=== PATIENT | male | born 1975 | race Caucasian/White ===

== ENCOUNTER 2023-11-28 14:18 | Emergency (ER) | payer BC, SELFPAY ==
[2023-11-28 14:19] VITALS: BP 150/100; PULSE 77; RESP 18; TEMP 35.9; O2SAT 99; BMI 25.9
[2023-11-28 14:31] VITALS: O2SAT 98
--- NOTE | 2023-11-28 15:07 | EKG12_ITS ---
Test Reason : SOB Blood Pressure : / mmHG Vent. Rate : 062 BPM Atrial Rate : 062 BPM P-R Int : 130 ms QRS Dur : 090 ms QT Int : 460 ms P-R-T Axes : 031 061 053 degrees QTc Int : 466 ms Sinus rhythm with Premature atrial complexes Otherwise normal ECG Confirmed by BE VILLALBA, CAROLYN ([id number]), editorial manager MYA PIKE ([id number]) on 12/01/2023 11:15:08 AM Referred By: Confirmed By:CAROLYN LR MD
--- NOTE | 2023-11-28 15:08 | EX.ED.DYSGE1 ---
HPI History of Present Illness Chief Complaint: Shortness of Breath Informant: patient Narrative Narrative: 48 yo patient who notes on Friday was walking through the plant and felt very hot. They noted increased need to breath harder. No change in chronic cough. No CP. Symptoms resolve with cooler/AC rooms. This occurred again today. Went to and sent to ED for concern for PE giving Tob use and hormonal use (hortensia VILLALBA @ [place]). Also notes recurrent rash on body with itching. Has had episodes for several years with no diagnosis. Reports using prednisone for it with some relief. PFSH PFSH Home Medications ?Medication ?Instructions ?Recorded ?Last Taken ?Type prednisone 20 mg tablet See Rx Instructions .Route 11/28/23 Unknown Rx .COMPLEX #24 tabs Allergy/AdvReac Type Severity Reaction Status Date / Time No Known Allergies Allergy Verified 11/28/23 14:19 Social History Smoking Status: Current some day smoker tobacco type: cigarettes ROS ROS ED ROS Narrative hot sensation while in hot environments Constitutional Constitutional ED: Denies chills, fever(s) or weight loss Eyes Eyes: Denies change in vision or diplopia ENT ENT ED: Denies ear pain, rhinorrhea or sore throat Cardiovascular Cardiovascular: Denies chest pain, orthopnea, palpitations or racing heartbeat Respiratory/Chest Respiratory/Chest: Reports cough, dyspnea, sputum and other Details: chronic cough - no change per patient ; Denies orthopnea Gastrointestinal Gastrointestinal: Denies abdominal pain, diarrhea, nausea or vomiting Genitourinary Genitourinary ED: Reports other Details: brown urine this am ; Denies dysuria, hematuria or urinary frequency Musculoskeletal Musculoskeletal: Denies arthralgias, back pain or myalgias Integumentary Reports rash; Denies abscess or Abrasions Neurologic Neurologic: Denies headache(s) or weakness Psychiatric Psychiatric: Denies anxiety, depression, suicidal ideation or suicidal thoughts Endocrine Endocrinology: Denies polydipsia, polyphagia or polyuria Allergic/Immunologic Allergic/Immunologic ED: Denies mouth swelling, tongue swelling or urticaria EXAM Physical Exam Const Vital Signs: 11/28/23 14:19 11/28/23 14:31 11/28/23 16:17 Temperature 96.6 F L Temperature Source Temporal Pulse Rate 77 78 Respiratory Rate 18 17 Respiratory Effort Normal Blood Pressure 150/100 H 104/53 L Blood Pressure Mean 116 70 Pulse Ox 99 98 Oxygen Delivery Method Room Air Room Air Room Air Positive well nourished and well developed General Appearance ED: well developed HEENT Reports normocephalic, head/scalp atraumatic and moist mucous membranes Eyes PERRL and EOMs intact bilaterally Neck no lymphadenopathy, supple and no JVD Resp normal respiratory effort and clear to auscultation bilaterally Cardio regular rate, regular rhythm and no murmurs GI normal to inspection, nondistended, normoactive bowel sounds and non-tender Palpation: soft Back/Spine no CVA tenderness and normal ROM Extremity normal to inspection General Extremety ED: Negative for edema General Extremity: Negative for edema Neuro oriented x3 and CN's II-XII intact bilaterally Sensorium / Orientation: alert Motor Exam: strength 5/5 throughout Psych mental status grossly normal Mood & Affect: Negative for depressed or tearful Skin no wounds Skin Narrative: rash - discrete red flat excoriated 3-4 mm round lesions arms/legs/trunks. no signs of cellulitis MDM MDM MDM Narrative Medical decision making narrative: Differential diagnoses include but not limited to pulmonary embolism ACS pneumothorax pneumonia chronic back pain acute bronchitis bronchospasm dermatitis folliculitis disseminated zoster Patel-Brandon's bug bites My independent interpretation the chest x-ray is no acute process. EKG is a sinus rhythm. CBC shows a normal white count 8.4 hemoglobin 15.5 platelet count of two 1773.6 neutrophils BMP within normal sodium and potassium. Calcium noted to be 8 glucose is 96 D-dimer is within normal limits troponin is within normal limits urinalysis 5-10 white cells 1+ bacteria. Patient does not have any urinary frequency or dysuria. This could be sent for culture. Patient's remained in a sinus rhythm. I do not see a clear etiology for their symptoms. I recommend that the patient establish primary care either locally or with her doctor in [place]. He also may benefit from seeing dermatology again as they have not followed up since they had a biopsy. Prednisone has helped with the rash in the past and I can certainly write for that. History & Record Review Discussion w/independent historian: Patient Lab Data Attestation: I reviewed the patient's lab results. Labs: Laboratory Results - last 24 hr 11/28/23 11/28/23 14:47 15:24 WBC 8.4 RBC 5.47 Hgb 15.5 Hct 45.0 MCV 82.3 MCH 28.3 MCHC 34.4 RDW Std Deviation 37.4 RDW Coeff of Pop 12.5 Plt Count 217 MPV 9.7 Immature Gran % (Auto) 0.500 Neut % (Auto) 73.6 H Lymph % (Auto) 18.1 L [place] % (Auto) 5.5 Eos % (Auto) 1.9 Baso % (Auto) 0.4 Absolute Neuts (auto) 6.2 Absolute Lymphs (auto) 1.52 Nucleated RBC % 0 D-Dimer Quant (PE/DVT) 0.29 Sodium 135 L Potassium 3.6 Chloride 102 Carbon Dioxide 24.0 Anion Gap 9 BUN 11 Creatinine 1.03 Estim Creat Clear Calc 97.31 Est GFR (MDRD) Af Amer 99 Est GFR (MDRD) Non-Af 82 BUN/Creatinine Ratio 10.7 Glucose 96 Calcium 8.0 L Total Bilirubin 1.00 Direct Bilirubin 0.17 AST 18 ALT 19 Alkaline Phosphatase 46 Troponin I High Sens 3 Total Protein 7.6 Albumin 3.6 Globulin 4.0 Urine Color Yellow Urine Clarity Sl. Cloudy Urine pH 6.5 Ur Specific [place] 1.010 Urine Protein Negative Urine Glucose (UA) Normal Urine Ketones Negative Urine Occult Blood Negative Urine Nitrite Negative Urine Bilirubin Negative Urine Urobilinogen Normal Ur Leukocyte Esterase 500 H Urine RBC 0-5 SEEN Urine WBC 5-10 SEEN Ur Squamous Epith Cells 0-5 SEEN Urine Bacteria 1+ Urine Mucus 0 SEEN Radiography Diagnostic Testing: Clinical Impression(s) from Imaging Studies Chest X-Ray 11/28/23 15:10 IMPRESSION: No interval change and no acute or active cardiopulmonary disease. Electronically Signed: Damien Giang MD at 15:16 EDT , EKG Initial EKG: Attestation: I personally reviewed and interpreted this EKG as follows: Comments: Sinus rhythm with a ventricular rate of 62 bpm. PAC noted. Discharge Plan Triage Chief Complaint: Shortness of Breath ED Provider: Elgin Shannon Dx/Rx/DC Orders Clinical Impression: Acute dyspnea, Rash Instructions: ED Dyspnea Prescriptions: New prednisone 20 mg tablet See Rx Instructions .ROUTE .COMPLEX Qty: 24 0RF Rx Instructions: 3 tabs p.o. daily x 4 days then 2 tabs p.o. daily x 4 days then 1 tab p.o. daily x 4 days Primary Care Provider: Mt Kim Referrals: Mt Kim MD [Primary Care Provider] - As soon as possible Timo Lopez MD [Med Staff - School Occupational Therapist] - (for dermatology locally) Print Language: Citizen Of [place] Disposition Disposition: Home, Self Care
--- NOTE | 2023-11-28 15:10 | RAD_ITS ---
STUDY: X-RAY CHEST REASON FOR EXAM: Male, 48 years old. Dyspnea. TECHNIQUE: Single frontal view of the chest. COMPARISON: September 28, 2014 FINDINGS: Low volume inspiration. There is no demonstrated pleural abnormality. Normal size heart. Normal mediastinum and ryan. Normal visualized pulmonary arteries. Aortic tortuosity. No abnormality of the visualized soft tissue structures of the upper abdomen. RAD/Chest 1 View (Portable) IMPRESSION: No interval change and no acute or active cardiopulmonary disease. Electronically Signed: Damien Giang MD at 15:16 EDT ,
--- NOTE | 2023-11-28 15:10 | NURSING ---
NO OLD EKGS
[2023-11-28 15:22] LABS: Absolute Lymphocyte Count 1.52 X10^3/uL (0.83-4.51); Absolute Neutrophil Count 6.2 X10^3/uL (2.0-7.7); Basophil# 0.03 X10^3/uL; Basophil% 0.4 % (0-1); Eosinophil# 0.16 X10^3/uL; Eosinophils% 1.9 % (0-5); Hemoglobin 15.5 g/dL (13.0-16.5); Lymphocyte # 1.52 X10^3/ul (0.83-4.51); Lymphocyte % 18.1 % (19-41); Mean Corp Hgb Conc 34.4 g/dL (32-36); Mean Corpuscular Hgb 28.3 pg (27.0-32.0); Mean Corpuscular Volume 82.3 fL (80-94); Mean Platelet Vol. 9.7 fl (6.2-12.0); Monocyte# 0.46 X10^3/uL; Monocyte% 5.5 % (0-10); NRBC Flagged by Analyzer 0 % (0-5); Neutrophil # 6.18 X10^3/uL (2.7-7.7); Neutrophil % 73.6 % (47-70); Platelet Count 217 K/mm3 (150-450); RBC Distribution Width CV 12.5 % (11.6-14.6); RBC Distribution Width SD 37.4 fl (35.1-43.9); Red Blood Count 5.47 M/mm3 (4.6-6.2); White Blood Count 8.4 K/mm3 (4.4-11.0)
[2023-11-28 15:30] LABS: Mucous, Urine 0 SEEN /hpf (<or=2+)
[2023-11-28 15:31] LABS: Color, Urine Yellow (Yellow); Glucose, Dipstick Normal (Normal); Ketone-Dipstick Negative (Negative); Leukocyte Esterase-Dipstick 500 /ul (Negative); Nitrite-Dipstick Negative (Negative); Occult Blood-Urine Negative /ul (Negative); Protein-Dipstick Negative (Negative); Urine Bilirubin Dipstick Negative (Negative); Urine Clarity Sl. Cloudy (Clear); Urine Urobilinogen Normal (Normal); Urine pH 6.5 (5.0 - 8.0)
[2023-11-28 15:41] LABS: D-Dimer Quantitative (DVT/PE) 0.29 FEU/ug/m (0.27-0.49)
[2023-11-28 15:46] LABS: Bacteria 1+ /hpf (None Seen); Red Blood Cells-Urine 0-5 SEEN /hpf (0-5); Squamous Epithelial Cells - UA 0-5 SEEN /hpf (0-5)
[2023-11-28 15:47] LABS: White Blood Cells 5-10 SEEN /hpf (0-5)
[2023-11-28 15:50] LABS: AST(SGOT) 18 U/L (15-37); Alanine Aminotransfer ALT/SGPT 19 U/L (16-61); Albumin, Serum 3.6 g/dL (3.2-5.0); Alkaline Phosphatase 46 U/L (45-117); Anion Gap 9 (5-15); BUN 11 mg/dL (7-18); BUN/Creat Ratio 10.7 RATIO (10-20); Bilirubin, Direct 0.17 mg/dL (0.00-0.30); Chloride 102 mmol/L (98-107); Creatinine, Serum 1.03 mg/dL (0.70-1.30); EST Glomerular Filtration Rate 82 mL/min (>60); Est Glom Filt Rate - Afr Amer 99 mL/min (>60); Estimated Creatinine Clearance 97.31 ml/min; Glucose 96 mg/dL (74-106); Potassium 3.6 mmol/L (3.5-5.1); Protein, Total 7.6 g/dL (6.4-8.2); Sodium Level 135 mmol/L (136-145); Troponin-I HS 3 pg/mL (3.0-78.0)
[2023-11-28] MEDS: 0.9% Normal Saline (1000mL) 1,000 ML 1000 ML IV (15:57)
[2023-11-28 16:17] VITALS: BP 104/53; PULSE 78; RESP 17; O2SAT 98
[2023-11-28 16:25] VITALS: BP 104/53; PULSE 67; RESP 18; TEMP 36.6; O2SAT 100
== END 2023-11-28 16:31 | disposition home or self-care (01) ==
PROVIDERS: Emergency Provider Emergency Medicine; PCP Family Medicine; Visit Provider Emergency Medicine
DX: R06.02 Shortness of breath (principal); R21 Rash and other nonspecific skin eruption; F17.210 Nicotine dependence, cigarettes, uncomplicated
CPT/HCPCS: 71045; 80048; 80076; 81001; 84484; 85025; 85379; 87077; 87086; 87088; 87186; 93005; 96360; 99283; J7030; A4216

== ENCOUNTER 2024-07-19 19:55 | Inpatient (IN) | payer BC, SELFPAY ==
[2024-07-19 19:56] VITALS: BP 119/68; PULSE 75; RESP 16; TEMP 36.1; O2SAT 99; BMI 27.2
[2024-07-19 20:56] VITALS: BP 142/83; PULSE 81; RESP 17; O2SAT 98
[2024-07-19 21:45] VITALS: PULSE 87; RESP 17; O2SAT 98
--- NOTE | 2024-07-19 21:47 | EDS_ITS ---
HPI History of Present Illness Chief Complaint: ETOH Intox Narrative Narrative: 49-year-old transgender male to female presents with her friend for alcohol detox. She states she has never been through detox previously but went through AA. She had been sober for 5 years, but over the last 5 months has had daily drinking of at least 6-10 tall boy beers a day. Her last drink was at 3:00 this morning, approximately 18 hours ago. She feels slightly nauseated but denies any shakiness. No chest pain or shortness of breath. She states she is here for alcohol detox. She does smoke marijuana on occasion but denies other substance abuse. PFSH [facility] Home Medications ?Medication ?Instructions ?Recorded ?Last Taken ?Type albuterol sulfate 90 mcg/actuation 2 puff inhalation Q 4H PRN PRN 07/19/24 Unknown History aerosol inhaler wheezing bupropion HCl 150 mg 24 hr tablet, 150 mg PO DAILY 03/05 Unknown History extended release buspirone 5 mg tablet 5 mg PO TID 07/19/24 Unknown History estradiol valerate 20 mg/mL 10 mg IM SA 07/19/24 Unkno wn History intramuscular oil fluticasone propionate 50 2 spray intranasal DAILY 03/05 Unknown History mcg/actuation nasal spray,suspension meclizine 12.5 mg tablet 12.5 mg PO Q6H PRN PRN dizzi ness 07/19/24 Unknown History progesterone micronized 100 mg 100 mg PO DAILY 5 Unknown History capsule propranolol 20 mg tablet 20 mg PO BID 07/19/24 Unknow n History Allergy/AdvReac Type Severity Reaction Status Date / Time No Known Allergies Allergy Verified 07/19/24 19:56 Social History Smoking Status: Current some day smoker tobacco type: cigarettes ROS ROS ED ROS Narrative Review of systems positive for slight nausea and minimal headache. Denies shakiness or chest pain, no shortness of breath or palpitations. No tremors. No abdominal pain. EXAM Physical Exam Narrative Exam Narrative: Afebrile. Vital signs noted. Nontoxic-appearing. Cardiovascular examination reveals a regular rate and rhythm without tachycardia, lungs clear to auscultation bilaterally. Abdomen soft and nontender without guarding or rebound. Positive bowel sounds. Neurological examination is nonfocal and nonlateralizing. Moves all extremities. Very slight slurring of speech as if intoxicated. Const Vital Signs: 07/19/24 19:56 07/19/24 20:56 07/19/24 21:45 Temperature 97 F L Temperature Source Temporal Pulse Rate 75 81 87 Respiratory Rate 16 17 17 Blood Pressure 119/68 142/83 H Blood Pressure Mean 85 102 Pulse Ox 99 98 98 Oxygen Delivery Method Room Air Room Air Room Air 07/19/24 22:00 07/19/24 22:09 07/19/24 23:00 Temperature 98 F Temperature Source Pulse Rate 71 70 69 Respiratory Rate 18 16 18 Blood Pressure 127/80 H 127/80 H 119/74 Blood Pressure Mean 95 95 89 Pulse Ox 98 97 98 Oxygen Delivery Method Room Air Room Air 07/20/24 00:00 Temperature Temperature Source Pulse Rate 60 Respiratory Rate Blood Pressure 142/96 H Blood Pressure Mean 111 Pulse Ox 94 Oxygen Delivery Method Room Air MDM MDM MDM Narrative Medical decision making narrative: Patient presents for detox from alcohol. I do not feel the differential diagnosis is applicable in this case. Medical screening labs were obtained per protocol. As the patient is biologically male, test was not obtained. Instead, CBC, CMP, and lipase were obtained. This as well as alcohol level and urine for drugs of abuse. I do not feel that any imaging is indicated and there are no active signs of withdrawal currently as she is normotensive and not tachycardic. Patient will be discussed with the hospitalist for admission for detox. Patient is in stable condition. Patient signed out to Dr. Clayton to discuss with the hospitalist admission for detox. History & Record Review Discussion w/independent historian: Patient Lab Data Attestation: I reviewed the patient's lab results. Labs: Laboratory Results - last 24 hr 07/19/24 07/19/24 07/19/24 21:47 21:54 21:59 WBC 8.1 RBC 4.69 Hgb 13.8 Hct 38.7 L MCV 82.5 MCH 29.4 MCHC 35.7 RDW Std Deviation 38.8 RDW Coeff of Pop 13.0 Plt Count 219 MPV 9.8 Immature Gran % (Auto) 0.500 Neut % (Auto) 60.1 Lymph % (Auto) 25.0 [place] % (Auto) 10.1 H Eos % (Auto) 3.6 Baso % (Auto) 0.7 Absolute Neuts (auto) 4.9 Absolute Lymphs (auto) 2.02 Nucleated RBC % 0 Sodium 138 Potassium 3.8 Chloride 104 Carbon Dioxide 24.2 Anion Gap 10 BUN 9 Creatinine 0.86 Estim Creat Clear Calc 122.13 Est GFR (MDRD) Non-Af 107 BUN/Creatinine Ratio 10.7 Glucose 88 Calcium 8.7 Total Bilirubin 0.31 AST 19 ALT 13 Alkaline Phosphatase 40 Total Protein 6.2 Albumin 3.9 Globulin 2.3 Albumin/Globulin Ratio 1.7 Urine Opiates Screen NEGATIVE U Buprenorphine Qual NEGATIVE Ur Oxycodone Screen NEGATIVE Urine Methadone Screen NEGATIVE Urine Fentanyl Screen NEGATIVE Ur Barbiturates Screen NEGATIVE Ur Phencyclidine Scrn NEGATIVE Ur Amphetamines Screen NEGATIVE U Benzodiazepines Scrn NEGATIVE Urine Cocaine Screen NEGATIVE U Cannabinoids Screen PREUMTIVE POSITIVE Ethyl Alcohol < 10.1 Discharge Plan Triage Chief Complaint: ETOH Intox ED Provider: Loyd rPyor Dx/Rx/DC Orders Prescriptions: No Action buspirone 5 mg tablet 5 mg PO TID meclizine 12.5 mg tablet 12.5 mg PO Q6H PRN PRN (Reason: dizziness) albuterol sulfate 90 mcg/actuation HFA aerosol inhaler 2 puff INHALATION Q4H PRN PRN (Reason: wheezing) propranolol 20 mg tablet 20 mg PO BID fluticasone propionate 50 mcg/actuation spray,suspension 2 spray INTRANASAL DAILY progesterone micronized 100 mg capsule 100 mg PO DAILY estradiol valerate 20 mg/mL oil 10 mg IM SA bupropion HCl 150 mg tablet extended release 24 hr 150 mg PO DAILY Primary Care Provider: Mt Kim Referrals: Mt Kim MD [Primary Care Provider] - Print Language: Czech
[2024-07-19 22:00] VITALS: BP 127/80; PULSE 71; RESP 18; O2SAT 98
[2024-07-19 22:08] LABS: Absolute Lymphocyte Count 2.02 X10^3/uL (0.83-4.51); Absolute Neutrophil Count 4.9 X10^3/uL (2.0-7.7); Basophil# 0.06 X10^3/uL; Basophil% 0.7 % (0-1); Eosinophil# 0.29 X10^3/uL; Eosinophils% 3.6 % (0-5); Hematocrit 38.7 % (40-54); Hemoglobin 13.8 g/dL (13.0-16.5); Lymphocyte # 2.02 X10^3/ul (0.83-4.51); Mean Corp Hgb Conc 35.7 g/dL (32-36); Mean Corpuscular Hgb 29.4 pg (27.0-32.0); Mean Corpuscular Volume 82.5 fL (80-94); Mean Platelet Vol. 9.8 fl (6.2-12.0); Monocyte# 0.82 X10^3/uL; Monocyte% 10.1 % (0-10); NRBC Flagged by Analyzer 0 % (0-5); Neutrophil # 4.86 X10^3/uL (2.7-7.7); Neutrophil % 60.1 % (47-70); Platelet Count 219 K/mm3 (150-450); RBC Distribution Width SD 38.8 fl (35.1-43.9); Red Blood Count 4.69 M/mm3 (4.6-6.2); White Blood Count 8.1 K/mm3 (4.4-11.0)
[2024-07-19 22:09] VITALS: BP 127/80; PULSE 70; RESP 16; TEMP 36.6; O2SAT 97
[2024-07-19 22:43] LABS: Alcohol, Blood (Medical)-Serum < 10.1 mg/dL (<=10.0)
[2024-07-19 22:45] LABS: Amphetamine Urine NEGATIVE (<1000 ng/mL); Barbiturate Urine NEGATIVE (< 200 ng/mL); Benzodiazepine Urine NEGATIVE (< 200 ng/mL); Buprenorphine Urine NEGATIVE (< 200 ng/mL); Cocaine Urine NEGATIVE (< 300 ng/mL); Fentanyl, Urine NEGATIVE; Methadone Urine NEGATIVE (< 300 ng/mL); Opiates Urine NEGATIVE (< 300 ng/mL); Oxycodone, Urine NEGATIVE (< 100 ng/mL); PCP Urine NEGATIVE (< 25 ng/mL); THC Urine PREUMTIVE POSITIVE (< 50 ng/mL)
[2024-07-19 22:57] LABS: ALB/GLOB Ratio 1.7 RATIO (0.9-2.4); AST(SGOT) 19 U/L (<=37); Alanine Aminotransfer ALT/SGPT 13 U/L (<=46); Albumin, Serum 3.9 g/dL (3.5-5.0); Alkaline Phosphatase 40 U/L (40-129); Anion Gap 10 (5-15); BUN 9 mg/dL (4-19); BUN/Creat Ratio 10.7 RATIO (10-20); Calcium,Total 8.7 mg/dL (7.6-11.0); Carbon Dioxide 24.2 mmol/L (21.0-32.0); Chloride 104 mmol/L (98-108); Creatinine, Serum 0.86 mg/dL (0.70-1.20); EST Glomerular Filtration Rate 107 (>60); Estimated Creatinine Clearance 122.13 ml/min (50-250); Globulin 2.3 g/dL (2.2-4.2); Glucose 88 mg/dL (70-99); Potassium 3.8 mmol/L (3.3-5.1); Protein, Total 6.2 g/dL (5.9-8.4); Sodium Level 138 mmol/L (133-145); Total Bilirubin 0.31 mg/dL (0.00-1.30)
[2024-07-19 23:00] VITALS: BP 119/74; PULSE 69; RESP 18; O2SAT 98
[2024-07-20] VITALS (8 sets, daily range): BP systolic 95–142; BP diastolic 41–99; PULSE 60–98; RESP 16–18; TEMP 36.3–36.6; O2SAT 94–99; BMI 27.0; BMI 27.8
--- NOTE | 2024-07-20 01:10 | PCM.HP.STD ---
[facility] - General General Date of Admission: 07/20/24 Date of Service: 07/20/24 Chief Complaint: Desire for Alcohol Detoxification. HPI Narrative DESTINI SANDOVAL, is a 49-year-old transgender male to female with a past medical history of chronic alcohol abuse, tobacco abuse, cannabis abuse, depression with anxiety; on bupropion, buspirone 3 times daily and propranolol twice daily, overweight; BMI of 27.2 this admission, history of asthma; on as needed albuterol, history of allergic rhinitis; on fluticasone propionate nasal spray, history of vertigo; on as needed meclizine and history of HRT; on estradiol IM and micronized progesterone daily who presents to [facility] ER expressing desire for alcohol detoxification. Ms. Sandoval reports alleged sobriety for the past 5 years but over the last 5 months has begun drinking heavily with routine ingestion of 6-10 tall boy beers daily. The last drink was approximately 3 AM on July 19, 2024. There is admission of slight nausea and mild headache but denies tremors or shakiness. There was also no report of chest pain, fever, chills or shortness of breath. In the ER patient was noted to have a YOJANA of less than 10.1 mg/dL with a UDS positive for Cannabis with impending alcohol withdrawal in the setting of chronic alcohol abuse and the patient was then admitted to the general medical floor for treatment under the alcohol detoxification protocol for a stay that is expected to extend beyond 2 midnights. [facility] Medical History (Updated 07/20/24 @ 05:[address] Gray Lopez, DO) Gender dysphoria Depression EtOH dependence Home Medications ?Medication ?Instructions ?Recorded ?Last Taken ?Type albuterol sulfate 90 mcg/actuation 2 puff inhalation Q4H PRN PRN 07/19/24 Unknown History aerosol inhaler wheezing bupropion HCl 150 mg 24 hr tablet, 150 mg PO DAILY 07/19/24 Unknown History extended release buspirone 5 mg tablet 5 mg PO TID 07/19/24 Unknown History estradiol valerate 20 mg/mL 10 mg IM SA 07/19/24 Unknown History intramuscular oil fluticasone propionate 50 2 spray intranasal DAILY 07/19/24 Unknown History mcg/actuation nasal spray,suspension meclizine 12.5 mg tablet 12.5 mg PO Q6H PRN PRN dizziness 07/19/24 Unknown History progesterone micronized 100 mg 100 mg PO DAILY 07/19/24 Unknown History capsule propranolol 20 mg tablet 20 mg PO BID 07/19/24 Unknown History Allergy/AdvReac Type Severity Reaction Status Date / Time No Known Allergies Allergy Verified 07/19/24 19:56 Social History Smoking Status: Current some day smoker tobacco type: cigarettes ROS ROS Narrative Review of Systems: Constitutional: Patient denies fever or chills. Eyes: Patient denies changes in vision, hallucinations or discharge from eyes. ENT: Patient denies runny nose, sore throat or ear pain. Resp: Patient denies shortness of breath or cough. CV: Patient denies chest pain, palpitations, heart racing or lower extremity edema. GI: Patient admits to nausea but denies vomiting, abdominal pain, diarrhea or constipation. : Patient denies dysuria or hematuria. MSK: Patient denies arthralgias or myalgias. Skin: Patient denies rash, abscess, wounds or jaundice. Psych: Patient admits to depression with anxiety but denies SI or HI. Neuro: Patient admits to minimal headache but denies paresthesias or focal neurologic deficits. Allergy: Patient denies lip swelling, tongue swelling or urticaria. Hematology: Patient denies easy bleeding or easy bruisability. Endocrinology: Patient denies polyuria, polydipsia or polyphagia. 14 point review of systems otherwise negative except for positives noted above in HPI. Vital Signs Vital Signs Vital Signs: 07/19/24 19:56 07/19/24 20:56 07/19/24 21:45 Temperature 97 F L Temperature Source Temporal Pulse Rate 75 81 87 Respiratory Rate 16 17 17 Blood Pressure 119/68 142/83 H Blood Pressure Mean 85 102 Pulse Ox 99 98 98 Oxygen Delivery Method Room Air Room Air Room Air 07/19/24 22:00 07/19/24 22:09 07/19/24 23:00 Temperature 98 F Temperature Source Pulse Rate 71 70 69 Respiratory Rate 18 16 18 Blood Pressure 127/80 H 127/80 H 119/74 Blood Pressure Mean 95 95 89 Pulse Ox 98 97 98 Oxygen Delivery Method Room Air Room Air 07/20/24 00:00 Temperature Temperature Source Pulse Rate 60 Respiratory Rate Blood Pressure 142/96 H Blood Pressure Mean 111 Pulse Ox 94 Oxygen Delivery Method Room Air Weight Weight: 212 lb Body Mass Index (BMI) 27.2 Physical Exam Const alert, oriented x3, no apparent distress and average body habitus General Appearance: cooperative HEENT normocephalic, head/scalp atraumatic, hearing grossly normal bilaterally and moist oral mucous membranes Eyes PERRL, EOMs intact bilaterally and conjunctivae normal Neck no lymphadenopathy, supple and no JVD Resp normal respiratory effort, no retractions, no use of accessory muscles and clear to auscultation bilaterally Cardio regular rate and regular rhythm GI normal to inspection, nondistended, normoactive bowel sounds, soft to palpation, non-tender and non-distended Extremity normal to inspection, full ROM and no clubbing, cyanosis or edema Skin Skin Narrative: Patient has no evidence of rash, abscess, wounds or jaundice. Neuro oriented x3, CN's II-XII intact bilaterally, moves all extremities and no focal motor deficits Sensorium / Orientation: awake, alert, oriented to person, oriented to place and oriented to time Speech: speech normal Psych Mood & Affect: depressed and anxious Results Medical Records Data Attestation: I reviewed the patient's medical records Lab / Micro Data Attestation: I reviewed the patient's lab results. 07/20/24 05:22 07/19/24 21:47 Labs: Laboratory Results - last 24 hr 07/19/24 21:47: Sodium 138, Potassium 3.8, Chloride 104, Carbon Dioxide 24.2, Anion Gap 10, BUN 9, Creatinine 0.86, Estim Creat Clear Calc 122.13, Est GFR (MDRD) Non-Af 107, BUN/Creatinine Ratio 10.7, Glucose 88, Calcium 8.7, Total Bilirubin 0.31, AST 19, ALT 13, Alkaline Phosphatase 40, Total Protein 6.2, Albumin 3.9, Globulin 2.3, Albumin/Globulin Ratio 1.7 07/19/24 21:54: WBC 8.1, RBC 4.69, Hgb 13.8, Hct 38.7 L, MCV 82.5, MCH 29.4, MCHC 35.7, RDW Std Deviation 38.8, RDW Coeff of Pop 13.0, Plt Count 219, MPV 9.8, Immature Gran % (Auto) 0.500, Neut % (Auto) 60.1, Lymph % (Auto) 25.0, [place] % (Auto) 10.1 H, Eos % (Auto) 3.6, Baso % (Auto) 0.7, Absolute Neuts (auto) 4.9, Absolute Lymphs (auto) 2.02, Nucleated RBC % 0, Ethyl Alcohol < 10.1 07/19/24 21:59: Urine Opiates Screen NEGATIVE, U Buprenorphine Qual NEGATIVE, Ur Oxycodone Screen NEGATIVE, Urine Methadone Screen NEGATIVE, Urine Fentanyl Screen NEGATIVE, Ur Barbiturates Screen NEGATIVE, Ur Phencyclidine Scrn NEGATIVE, Ur Amphetamines Screen NEGATIVE, U Benzodiazepines Scrn NEGATIVE, Urine Cocaine Screen NEGATIVE, U Cannabinoids Screen PREUMTIVE POSITIVE Assessment & Plan Assessment/Plan (1) Desire for detoxification: (2) Chronic alcohol abuse: (3) Cannabis abuse: (4) Tobacco abuse: (5) Depression with anxiety: (6) Transgender man on hormone therapy: (7) Gender dysphoria: (8) Overweight (BMI 25.0-29.9): PLAN: Plan 1. Impending Alcohol Withdrawal in the setting of Chronic Alcohol Abuse with patient expressing desire for Alcohol Detoxification - Admit to general medical floor for treatment under the alcohol detoxification protocol primarily consisting of phenobarbital taper. Alcohol Cessation will be strongly encouraged. Finally, we will consult case management see this patient on rounds in the a.m. further recommendations regarding referral to 180 program with help appreciated in advance. 2. Cannabis Abuse; with UDS positive for this agent this admission complicating #1 - Cannabis Cessation will be strongly encouraged. 3. Tobacco Abuse compounding #1 & #2 - Tobacco Cessation will be strongly encouraged with nicotine patch offered to control cravings. 4. Depression with anxiety; on bupropion, buspirone 3 times daily and propranolol twice daily - Maintain home regimen as previous. 5. History of gender dysphoria on HRT; on estradiol IM and micronized progesterone adding to the medical complexity of #1-#4 - Noted. 6. Overweight; BMI of 27.2 this admission - Weight also be recommended. Check TSH. 7. History of asthma; on as needed albuterol - Stable with no evidence of acute flare at this time. Continue as needed albuterol. 8. History of allergic rhinitis; on fluticasone propionate nasal spray - Resume fluticasone as before. 9. History of vertigo; on as needed meclizine - Continue as needed meclizine. 10. DVT prophylaxis - Lovenox 40 mg sq daily. Total time: Approximately (but not less than) 75 minutes. Charges/Coding Visit Charges Inpatient E&M: 05282 Init Hosp L3
[2024-07-20] MEDS: Phenobarbital 32.4 MG Tablet PO ×6 (03:29→22:43)
[2024-07-20] MEDS: 0.9% Normal Saline (1000mL) 1,000 ML 100 ML IV (03:43)
[2024-07-20] MEDS: 0.9% Saline Lock 10 ML Syringe IV (03:44)
[2024-07-20 05:50] LABS: Absolute Lymphocyte Count 2.03 X10^3/uL (0.83-4.51); Absolute Neutrophil Count 4.1 X10^3/uL (2.0-7.7); Basophil# 0.04 X10^3/uL; Basophil% 0.6 % (0-1); Eosinophils% 4.1 % (0-5); Hematocrit 36.7 % (40-54); Lymphocyte # 2.03 X10^3/ul (0.83-4.51); Lymphocyte % 28.1 % (19-41); Mean Corp Hgb Conc 35.4 g/dL (32-36); Mean Corpuscular Volume 81.9 fL (80-94); Mean Platelet Vol. 9.9 fl (6.2-12.0); Monocyte# 0.72 X10^3/uL; NRBC Flagged by Analyzer 0 % (0-5); Neutrophil % 56.6 % (47-70); Platelet Count 206 K/mm3 (150-450); RBC Distribution Width SD 38.8 fl (35.1-43.9); Red Blood Count 4.48 M/mm3 (4.6-6.2); White Blood Count 7.2 K/mm3 (4.4-11.0)
[2024-07-20 06:24] LABS: ALB/GLOB Ratio 1.7 RATIO (0.9-2.4); AST(SGOT) 18 U/L (<=37); Alanine Aminotransfer ALT/SGPT 12 U/L (<=46); Albumin, Serum 3.7 g/dL (3.5-5.0); Alkaline Phosphatase 34 U/L (40-129); Anion Gap 10 (5-15); BUN 11 mg/dL (4-19); BUN/Creat Ratio 13.2 RATIO (10-20); Calcium,Total 8.4 mg/dL (7.6-11.0); Carbon Dioxide 22.6 mmol/L (21.0-32.0); Chloride 104 mmol/L (98-108); Creatinine, Serum 0.84 mg/dL (0.70-1.20); EST Glomerular Filtration Rate 108 (>60); Estimated Creatinine Clearance 125.04 ml/min (50-250); Globulin 2.2 g/dL (2.2-4.2); Glucose 87 mg/dL (70-99); Magnesium 2.1 mg/dL (1.5-2.2); Phosphorus 2.8 mg/dL (2.7-4.5); Potassium 3.7 mmol/L (3.3-5.1); Protein, Total 5.9 g/dL (5.9-8.4); Sodium Level 137 mmol/L (133-145); Total Bilirubin 0.36 mg/dL (0.00-1.30)
[2024-07-20] MEDS: busPIRone 5 MG Tablet PO ×3 (06:46→22:43)
[2024-07-20] MEDS: Thiamine Hydrochloride 100 MG Tablet PO (08:49)
[2024-07-20] MEDS: Folic Acid 1 MG Tablet PO (08:49)
[2024-07-20] MEDS: Propranolol 10 MG Tablet 20 MG PO ×2 (11:30→22:43)
[2024-07-20] MEDS: Enoxaparin 40 MG/0.4 ML Syringe SC (11:31)
[2024-07-20] MEDS: buPROPion (XL) 150 MG TABLET.XL PO (11:31)
--- NOTE | 2024-07-20 12:53 | PCM.HOSP.N ---
Hospitalist Note Patient admitted early in the morning 07/20/2024 for alcohol detox, tolerating phenobarb taper, has a slight headache but is better than it was, feels little bit unwell overall and was little bit nauseated earlier, discussed the as needed medications available and patient verbalized their understanding. Continue current management
[2024-07-21] MEDS: MELATONIN 3 MG TABLET PO (00:15)
[2024-07-21] MEDS: Acetaminophen 325 MG Tablet 650 MG PO ×2 (00:16→14:32)
[2024-07-21] MEDS: traZODone 100 MG Tablet PO (00:16)
[2024-07-21] MEDS: hydrOXYzine PAM 25 MG Capsule 50 MG PO (00:16)
[2024-07-21] MEDS: Phenobarbital 32.4 MG Tablet PO ×6 (03:43→22:13)
[2024-07-21 04:00] VITALS: BP 96/52; PULSE 58; RESP 16; TEMP 36.7; O2SAT 96
[2024-07-21] MEDS: busPIRone 5 MG Tablet PO ×3 (06:46→22:13)
[2024-07-21 08:18] VITALS: BP 82/45; PULSE 57; RESP 13; TEMP 36.4; O2SAT 97
[2024-07-21] MEDS: Thiamine Hydrochloride 100 MG Tablet PO (08:21)
[2024-07-21] MEDS: Folic Acid 1 MG Tablet PO (08:21)
[2024-07-21] MEDS: Enoxaparin 40 MG/0.4 ML Syringe SC (08:21)
[2024-07-21] MEDS: PROGESTERONE, MICRONIZED 100 MG CAPSULE PO (08:22)
--- NOTE | 2024-07-21 10:35 | ADDICTION ---
clinician met with patient. patient presented as tired and out of it. client was not able to sustain attention to discuss tx hx and discharge planning. clinician advised patient follow up will occur tomorrow 07/22/24.
--- NOTE | 2024-07-21 10:47 | PN.HOSP_ITS ---
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) Gender identity disorder, unspecified (07/20/24) Tobacco use (07/20/24) Other longterm (current) drug therapy (07/20/24) Subjective Subjective Resting in bed, feeling somewhat tired this a.m., no other acute complaints Objective Data Objective Data Vital Signs: Vital Signs Temp Pulse Resp BP Pulse Ox O2 Del Method 97.6 F L 57 L 13 82/45 L 97 Room Air 07/21/24 08:18 07/21/24 08:18 07/21/24 08:18 07/21/24 08:18 07/21/24 08:18 07/21/24 08:18 Oxygen Delivery Method Room Air Weight: 98.6 kg Body Mass Index (BMI) 27.8 Intake & Output: Intake and Output for Last 24 Hours 07/19/24 07/20/24 07/21/24 23:59 23:59 23:59 Intake Total 1360 / 1360 Balance 1360 / 1360 Lab / Micro Data 07/20/24 05:22 07/20/24 05:22 Physical Exam Narrative General: Wakes up and answers questions appropriately, oriented, no apparent distress HEENT: Atraumatic, normocephalic Eyes: extraocular movements grossly intact Neck: Supple Respiratory: normal respiratory effort Cardiovascular: no edema appreciated GI: nondistended Extremities: Moving all extremities Neuro: No overt focal neurological deficits Psych: Cooperative Assessment & Plan Assessment/Plan (1) Desire for detoxification: PLAN: Plan #Alcohol use disorder - We will begin CIWA every 4 for 24 hours, then every 6 for 24 hours, then every 12 until discharge -Will begin phenobarbital taper -Gabapentin 300 mg every 8 as needed -Will start Bentyl and hydroxyzine as needed as well as loperamide as needed -Trazodone 100 mg p.o. nightly as needed sleep -Begin thiamine and folic acid supplementation -Zofran as needed for nausea -Case management consult to assist with discharge planning #Tobacco use -Advise cessation -Nicotine replacement available if desired # Gender dysphoria -Home meds nonformulary, continue on outpatient basis #DVT ppx: Low risk, ambulatory Jenna Culver MD Charges/Coding Visit Charges Inpatient E&M: 21910 Subs Hosp L1
[2024-07-21] MEDS: buPROPion (XL) 150 MG TABLET.XL PO (11:46)
[2024-07-21 14:25] VITALS: BP 107/65; PULSE 54; RESP 16; TEMP 36.3; O2SAT 99
[2024-07-21 22:10] VITALS: BP 106/62; PULSE 55; RESP 16; TEMP 36.7; O2SAT 96
[2024-07-22] MEDS: MELATONIN 3 MG TABLET PO ×2 (00:08→22:32)
[2024-07-22] MEDS: traZODone 100 MG Tablet PO ×2 (00:08→22:32)
[2024-07-22] MEDS: hydrOXYzine PAM 25 MG Capsule 50 MG PO (00:09)
[2024-07-22] MEDS: 0.9% Saline Lock 10 ML Syringe IV (00:09)
[2024-07-22 04:08] VITALS: BP 103/57; PULSE 63; RESP 16; TEMP 36.6; O2SAT 97
[2024-07-22] MEDS: Phenobarbital 32.4 MG Tablet PO ×5 (04:10→22:32)
[2024-07-22 05:19] VITALS: BMI 27.7
[2024-07-22 06:14] VITALS: BP 111/58; PULSE 56; RESP 16; TEMP 36.6; O2SAT 97
[2024-07-22] MEDS: busPIRone 5 MG Tablet PO ×3 (06:17→22:33)
[2024-07-22 08:36] VITALS: BP 90/54; PULSE 60; RESP 16; TEMP 36.5; O2SAT 97
[2024-07-22] MEDS: Folic Acid 1 MG Tablet PO (08:39)
[2024-07-22] MEDS: buPROPion (XL) 150 MG TABLET.XL PO (08:39)
[2024-07-22] MEDS: Thiamine Hydrochloride 100 MG Tablet PO (08:39)
[2024-07-22] MEDS: PROGESTERONE, MICRONIZED 100 MG CAPSULE PO (08:40)
--- NOTE | 2024-07-22 11:28 | ADDICTION ---
clinician met with patient for follow up to further discuss discharge plan. client presented as cooperative, however, inattentive aeb fidgeting with various objects. client denies the need for tx. Clinician facilitated discussion regarding her most recent relapse; she presented as a poor historian. when asked, she reported current stressors include (unsupportive) mother residing with her. clinician provided brief intervention; providing unconditional positive regard and discussing/exploring stress management. client reports a hx of attending AA meetings with sponsor. she has not spoken to sponsor in 5 months. clinician strongly encouraged client to [facility]. clinician also discussed ASA 1.0 for continued support. she reported seeing Renate at [facility]. When asked, client declined this clinician coordinating care to set up a counseling appointment. clinician gave client business card for [facility] that includes peer support hotline and main number to contact to re-establish counseling services.
[2024-07-22] MEDS: Fluticasone 0.05% 1 SPRAY NASAL.SRY 2 SPRAY NASAL ×2 (14:31→22:34)
[2024-07-22] MEDS: Gabapentin 300 MG Capsule PO ×2 (14:36→22:39)
[2024-07-22 14:40] VITALS: BP 112/60; PULSE 62; RESP 14; TEMP 36.6; O2SAT 98
--- NOTE | 2024-07-22 17:22 | PCM.PN.HOSP ---
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) Gender identity disorder, unspecified (07/20/24) Tobacco use (07/20/24) Other usp (current) drug therapy (07/20/24) Subjective Subjective Feeling a little bit better, remains on taper, up and ambulating, less tired today Objective Data Objective Data Vital Signs: Vital Signs Temp Pulse Resp BP Pulse Ox O2 Del Method 97.8 F 62 14 112/60 98 Room Air 07/22/24 14:40 07/22/24 14:40 07/22/24 14:40 07/22/24 14:40 07/22/24 14:40 07/22/24 14:40 Oxygen Delivery Method Room Air Weight: 98.1 kg Body Mass Index (BMI) 27.7 Intake & Output: Intake and Output for Last 24 Hours 07/20/24 07/21/24 07/22/24 23:59 23:59 23:59 Intake Total 1360 / 1360 200 / 200 1000 / 1000 Balance 1360 / 1360 200 / 200 1000 / 1000 Lab / Micro Data 07/20/24 05:22 07/20/24 05:22 Physical Exam Narrative General: Awake and alert, no acute distress HEENT: Atraumatic, normocephalic Eyes: extraocular movements grossly intact Neck: Supple Respiratory: normal respiratory effort Cardiovascular: no edema appreciated GI: nondistended Extremities: Moving all extremities Neuro: No overt focal neurological deficits Psych: Cooperative Assessment & Plan Assessment/Plan (1) Desire for detoxification: PLAN: Plan #Alcohol use disorder - We will begin CIWA every 4 for 24 hours, then every 6 for 24 hours, then every 12 until discharge -Will begin phenobarbital taper -Gabapentin 300 mg every 8 as needed -Will start Bentyl and hydroxyzine as needed as well as loperamide as needed -Trazodone 100 mg p.o. nightly as needed sleep -Begin thiamine and folic acid supplementation -Zofran as needed for nausea -Case management consult to assist with discharge planning -07/22: Patient remains on taper, likely will DC tomorrow Chronic medical problems: #Tobacco use -Advise cessation -Nicotine replacement available if desired # Gender dysphoria -Home meds nonformulary, continue on outpatient basis #DVT ppx: Low risk, ambulatory Jenna Culver MD Charges/Coding Visit Charges Inpatient E&M: 65183 Subs Hosp L1
[2024-07-22 22:30] VITALS: BP 110/56; PULSE 62; RESP 16; TEMP 36.6; O2SAT 98
[2024-07-22 22:45] VITALS: PULSE 58
[2024-07-23 00:01] VITALS: BMI 27.7
[2024-07-23] MEDS: busPIRone 5 MG Tablet PO (06:06)
[2024-07-23] MEDS: Phenobarbital 32.4 MG Tablet PO ×2 (06:06→11:41)
[2024-07-23 06:08] VITALS: BP 105/69; PULSE 62; RESP 16; TEMP 36.3; O2SAT 97
[2024-07-23] MEDS: Fluticasone 0.05% 1 SPRAY NASAL.SRY 2 SPRAY NASAL (08:54)
[2024-07-23] MEDS: PROGESTERONE, MICRONIZED 100 MG CAPSULE PO (08:55)
[2024-07-23] MEDS: Thiamine Hydrochloride 100 MG Tablet PO (08:55)
[2024-07-23] MEDS: Folic Acid 1 MG Tablet PO (08:55)
[2024-07-23] MEDS: buPROPion (XL) 150 MG TABLET.XL PO (08:55)
[2024-07-23 11:19] VITALS: BP 97/53; PULSE 61; RESP 18; TEMP 36.8; O2SAT 98
--- NOTE | 2024-07-23 11:19 | DCINST_ITS ---
Discharge Instructions Diet Discharge Diet: No restrictions DC O2, CPAP, BIPAP needs Home O2 Discharge instructions: No Dressing / Incision Discharge Activity: Return to Normal Activity Follow Up Care Test Results: Test results from this visit will be discussed in further detail at your follow- up appointment, if applicable. Discharge Plan Admission Admit Date/Time: 07/20/24 02:11 Primary Reason for Your Visit: Alcohol detox Attending Provider: Jenna Culver Primary Care Provider: Mt Kim Consulting Providers: Gray Lopez Instructions Patient Instructions: Alcohol Addiction, Addiction: Your Treatment Options Additional Instructions / Restrictions: -Please call your primary care provider's office upon discharge to schedule a hospital follow up within 1 week. -For any concerning signs or symptoms please call 911 or proceed to the nearest emergency department Discharge Orders/Prescriptions Prescriptions: Continued buspirone 5 mg tablet 5 mg PO TID meclizine 12.5 mg tablet 12.5 mg PO Q6H PRN PRN (Reason: dizziness) albuterol sulfate 90 mcg/actuation HFA aerosol inhaler 2 puff INHALATION Q4H PRN PRN (Reason: wheezing) propranolol 20 mg tablet 20 mg PO BID fluticasone propionate 50 mcg/actuation spray,suspension 2 spray INTRANASAL DAILY progesterone micronized 100 mg capsule 100 mg PO DAILY estradiol valerate 20 mg/mL oil 10 mg IM SA bupropion HCl 150 mg tablet extended release 24 hr 150 mg PO DAILY Referrals / Follow Up: Mt Kim MD [Primary Care Provider] - Disposition Disposition (needs filled in before D/C Order can be placed): Home, Self Care
--- NOTE | 2024-07-23 11:19 | PCM.DC.SUM ---
Providers Date of Admission: 07/20/24 Date of Discharge: 07/23/24 Primary Care Physician: Dr. 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 Medications at Discharge Home Medications albuterol sulfate 90 mcg/actuation aerosol inhaler 2 puff inhalation Q4H PRN PRN wheezing 07/19/24 bupropion HCl 150 mg 24 hr tablet, extended release 150 mg PO DAILY 07/19/24 buspirone 5 mg tablet 5 mg PO TID 07/19/24 estradiol valerate 20 mg/mL intramuscular oil 10 mg IM SA 07/19/24 fluticasone propionate 50 mcg/actuation nasal spray,suspension 2 spray intranasal DAILY 07/19/24 meclizine 12.5 mg tablet 12.5 mg PO Q6H PRN PRN dizziness 07/19/24 progesterone micronized 100 mg capsule 100 mg PO DAILY 07/19/24 propranolol 20 mg tablet 20 mg PO BID 07/19/24 Hospital Course Summary of Care Provided Minutes Spent on Discharge: 25 Hospital Course: # Alcohol use disorder-presented for alcohol detox # Cannabis use # Tobacco use # Depression anxiety # Male to female 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 Patient completed their detox and on day of discharge was stable with no new or acute complaints. Discharged home in stable condition, patient plans to contact sponsor on discharge and is going [facility] for [facility]. Chronic medical problems: #Tobacco use -Advise cessation -Nicotine replacement available if desired # Gender dysphoria -Home meds nonformulary, continue on outpatient basis #DVT ppx: Low risk, ambulatory Jenna Culver MD Physical Exam Narrative General: Awake and alert, no acute distress HEENT: Atraumatic, normocephalic Eyes: extraocular movements grossly intact Neck: Supple Respiratory: normal respiratory effort Cardiovascular: no edema appreciated GI: nondistended Extremities: Moving all extremities Neuro: No overt focal neurological deficits Psych: Cooperative Weight / BMI Weight Weight: 98.1 kg Body Mass Index (BMI) 27.7 ABG / Lab / Microbiology Data 07/20/24 05:22 07/20/24 05:22 D/C Instructions Discharge Diet: No restrictions DC O2, CPAP, BIPAP Needs Home O2 Discharge instructions: No Meaningful Use Info Meaningful Use Meaningful Use Diagnoses (Choose all that apply): None applicable Ischemic Stroke Statin Dosing Therapy Reference: STATIN DOSE THERAPY REFERENCE: * Patients > 75 years receive moderate or high dose statin therapy. * Patients 75 years or YOUNGER should receive HIGH intensity statin dose unless contraindicated. You will be required to document reason for non-treatment if statin daily dose does not meet guidelines. HIGH DOSE STATIN THERAPY DAILY Atorvastatin > than or = to 40 mg Rosuvastatin > than or = to 20 mg Amlodipine + Atorvastatin > than or = to 2.5/40 mg Ezetimibe + Simvastatin 10/80 mg Simvastatin 80mg Discharge Plan Admission Admit Date/Time: 07/20/24 02:11 Primary Reason for Your Visit: Alcohol detox Attending Provider: Jenna Culver Primary Care Provider: Mt Kim Consulting Providers: Gray Lopez Instructions Patient Instructions: Alcohol Addiction, Addiction: Your Treatment Options Additional Instructions / Restrictions: -Please call your primary care provider's office upon discharge to schedule a hospital follow up within 1 week. -For any concerning signs or symptoms please call 911 or proceed to the nearest emergency department Discharge Orders/Prescriptions Prescriptions: Continued buspirone 5 mg tablet 5 mg PO TID meclizine 12.5 mg tablet 12.5 mg PO Q6H PRN PRN (Reason: dizziness) albuterol sulfate 90 mcg/actuation HFA aerosol inhaler 2 puff INHALATION Q4H PRN PRN (Reason: wheezing) propranolol 20 mg tablet 20 mg PO BID fluticasone propionate 50 mcg/actuation spray,suspension 2 spray INTRANASAL DAILY progesterone micronized 100 mg capsule 100 mg PO DAILY estradiol valerate 20 mg/mL oil 10 mg IM SA bupropion HCl 150 mg tablet extended release 24 hr 150 mg PO DAILY Referrals / Follow Up: Mt Kim MD [Primary Care Provider] - Disposition Disposition (needs filled in before D/C Order can be placed): Home, Self Care Charges/Coding Visit Charges Inpatient E&M: 39892 Disch Hosp
== END 2024-07-23 12:29 | disposition home or self-care (01) | DRG 897 ==
LOC: ED 07-20 01:28 → MS2 07-20 02:23 → MS3 07-22 18:11
PROVIDERS: Admitting Provider Internal Medicine; Emergency Provider Emergency Medicine; PCP Family Medicine; Visit Provider Internal Medicine
DX: F10.139 Alcohol abuse with withdrawal, unspecified (principal); E66.3 Overweight; F12.10 Cannabis abuse, uncomplicated; F32.A Depression, unspecified; F17.210 Nicotine dependence, cigarettes, uncomplicated; F64.0 Transsexualism; F41.9 Anxiety disorder, unspecified; Z68.27 Body mass index [BMI] 27.0-27.9, adult; Z79.51 Long term (current) use of inhaled steroids; Z79.899 Other long term (current) drug therapy; Y90.0 Blood alcohol level of less than 20 mg/100 ml
CPT/HCPCS: 36415; 80053; 80307; 82077; 83735; 84100; 84443; 85025; 99284; 99406; A4216

== ENCOUNTER 2024-12-03 12:25 | Day surgery (SDC) | payer BC, SELFPAY ==
--- NOTE | 2024-11-30 16:48 | PAT.ANE_ITS ---
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 When Was Last Pacemaker Check QUESTION #4 FULL TEXT: You/Your Family Experience fever (hyperthermia) with Anesthesia Last Oral Intake Last Oral intake: Last Oral Intake NPO since Meds taken in AM with sips of water? 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 - screw machine operator Female No 11/30/24 12:33 HX of Motion Sickness No 11/30/24 12:33 HX of N/V After Surgery No 11/30/24 12:33 Non-Smoker No 11/30/24 12:33 Duration of Surgery greater No 11/30/24 12:33 than 60 minutes Number of Risk Factors PONV Score Height & Weight Height & Weight: Anesthesia: Height & Weight Height 6 ft 2 in 07/20/24 02:30 Respiratory Assessment Respiratory Assessment - screw machine operator: Respiratory Tract Infection Hx - screw machine operator Hx Respiratory Tract Infection No 11/30/24 12:33 STOP Sleep Apnea STOP Sleep Apnea - screw machine operator: STOP Sleep Apnea - screw machine operator Hx Hypertension No 11/30/24 12:33 Hx Sleep Apnea No 11/30/24 12:33 CPAP BIPAP Do you snore loudly (louder No 11/30/24 12:33 than talking or can be heard Do you often feel tired/ No 11/30/24 12:33 fatigued/ sleepy during daytime? Has anyone observed you stop No 11/30/24 12:33 breathing during sleep? STOP Results Negative 11/30/24 12:33 QUESTION #5 FULL TEXT : Do you snore loudly (louder than talking or can be heard through closed doors)? 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 Specify any problems Hx of Preganancy in last 3 N/A 11/30/24 12:33 Months Nurse Filling Out Transfusion VCHRISTIN 11/30/24 12:33 & Questions: Date: 11/30/24 11/30/24 12:33 Time: 12:34 11/30/24 12:33 Patient unable to answer at this time (ie. confused, unrespo /Reproduction History /Reproductive History - screw machine operator: /Reproductive Hx- screw machine operator Hx Now No 11/30/24 12:33 Gestational Age (in weeks): EDC: Hx Hx Para Hx Section SAB No 11/30/24 12:33 PFSH Medical History (Updated 11/30/24 @ 12:32 by Kathy Espino) Wears glasses Anxiety Eczema Smoker History of pain when walking Screening for colon cancer Gender dysphoria Depression Home Medications ?Medication ?Instructions ?Recorded ?Last Taken ?Type albuterol sulfate 90 mcg/actuation 2 puff inhalation Q 4H PRN PRN 07/19/24 Unknown History aerosol inhaler wheezing bupropion HCl 150 mg 24 hr tablet, 150 mg PO DAILY 03/05 Unknown History extended release buspirone 5 mg tablet 5 mg PO TID 07/19/24 Unknown History estradiol valerate 20 mg/mL 10 mg IM SA 07/19/24 Unkno wn History intramuscular oil fluticasone propionate 50 2 spray intranasal DAILY 03/05 Unknown History mcg/actuation nasal spray,suspension meclizine 12.5 mg tablet 12.5 mg PO Q6H PRN PRN dizzi ness 07/19/24 Unknown History progesterone micronized 100 mg 100 mg PO DAILY 5 Unknown History capsule propranolol 20 mg tablet 20 mg PO BID 07/19/24 Unknow n History finasteride 5 mg tablet 5 mg PO DAILY 11/30/24 Unkno wn History Allergy/AdvReac Type Severity Reaction Status Date / Time No Known Allergies Allergy Verified 11/30/24 12:19 Surgical History (Updated 11/30/24 @ 12:32 by Kathy Espino) Hx of surgical procedure Hx of umbilical hernia repair Social History Smoking Status: Current some day smoker tobacco type: cigarettes Audit: Pertinent Findings Pertinent Findings EKG Perinent findings: 11/28/2023 Sinus rhythm with premature atrial complexes, otherwise normal ECG Recommendation Anesthesia Recommendation Anesthesia recommendation: OPTIMIZED for anesthesia
--- NOTE | 2024-11-30 16:48 | PAT.ANE_ITS ---
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 When Was Last Pacemaker Check QUESTION #4 FULL TEXT: You/Your Family Experience fever (hyperthermia) with Anesthesia Last Oral Intake Last Oral intake: Last Oral Intake NPO since Meds taken in AM with sips of water? 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 Female No 11/30/24 12:33 HX of Motion Sickness No 11/30/24 12:33 HX of N/V After Surgery No 11/30/24 12:33 Non-Smoker No 11/30/24 12:33 Duration of Surgery greater No 11/30/24 12:33 than 60 minutes Number of Risk Factors PONV Score Height & Weight Height & Weight: Anesthesia: Height & Weight Height 6 ft 2 in 07/20/24 02:30 Respiratory Assessment Respiratory Assessment - sash assembler: Respiratory Tract Infection Hx - sash assembler Hx Respiratory Tract Infection No 11/30/24 12:33 STOP Sleep Apnea STOP Sleep Apnea - sash assembler: STOP Sleep Apnea - sash assembler Hx Hypertension No 11/30/24 12:33 Hx Sleep Apnea No 11/30/24 12:33 CPAP BIPAP Do you snore loudly (louder No 11/30/24 12:33 than talking or can be heard Do you often feel tired/ No 11/30/24 12:33 fatigued/ sleepy during daytime? Has anyone observed you stop No 11/30/24 12:33 breathing during sleep? STOP Results Negative 11/30/24 12:33 QUESTION #5 FULL TEXT : Do you snore loudly (louder than talking or can be heard through closed doors)? 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 Specify any problems Hx of Preganancy in last 3 N/A 11/30/24 12:33 Months Nurse Filling Out Transfusion VCHRISTIN 11/30/24 12:33 & Questions: Date: 11/30/24 11/30/24 12:33 Time: 12:34 11/30/24 12:33 Patient unable to answer at this time (ie. confused, unrespo /Reproduction History /Reproductive History - sash assembler: /Reproductive Hx- sash assembler Hx Now No 11/30/24 12:33 Gestational Age (in weeks): EDC: Hx Hx Para Hx Section SAB No 11/30/24 12:33 PFSH Medical History (Updated 11/30/24 @ 12:32 by Kathy Espino) Wears glasses Anxiety Eczema Smoker History of pain when walking Screening for colon cancer Gender dysphoria Depression Home Medications ?Medication ?Instructions ?Recorded ?Last Taken ?Type albuterol sulfate 90 mcg/actuation 2 puff inhalation Q 4H PRN PRN 07/19/24 Unknown History aerosol inhaler wheezing bupropion HCl 150 mg 24 hr tablet, 150 mg PO DAILY 03/05 Unknown History extended release buspirone 5 mg tablet 5 mg PO TID 07/19/24 Unknown History estradiol valerate 20 mg/mL 10 mg IM SA 07/19/24 Unkno wn History intramuscular oil fluticasone propionate 50 2 spray intranasal DAILY 03/05 Unknown History mcg/actuation nasal spray,suspension meclizine 12.5 mg tablet 12.5 mg PO Q6H PRN PRN dizzi ness 07/19/24 Unknown History progesterone micronized 100 mg 100 mg PO DAILY 5 Unknown History capsule propranolol 20 mg tablet 20 mg PO BID 07/19/24 Unknow n History finasteride 5 mg tablet 5 mg PO DAILY 11/30/24 Unkno wn History Allergy/AdvReac Type Severity Reaction Status Date / Time No Known Allergies Allergy Verified 11/30/24 12:19 Surgical History (Updated 11/30/24 @ 12:32 by Kathy Espino) Hx of surgical procedure Hx of umbilical hernia repair Social History Smoking Status: Current some day smoker tobacco type: cigarettes Audit: Pertinent Findings Pertinent Findings EKG Perinent findings: 11/28/2023 Sinus rhythm with premature atrial complexes, otherwise normal ECG Recommendation Anesthesia Recommendation Anesthesia recommendation: OPTIMIZED for anesthesia
[2024-12-03] VITALS (8 sets, daily range): BP systolic 61–104; BP diastolic 57–65; PULSE 57–68; RESP 16; TEMP 36.1–36.7; O2SAT 94–98; BMI 26.3
[2024-12-03] MEDS: Lactated Ringers 1,000 ML 15 ML IV (12:50)
--- NOTE | 2024-12-03 13:02 | PCM.HP.STD ---
HPI - General General Date of Admission: 12/03/24 Date of Service: 12/03/24 Chief Complaint: Screening colonoscopy HPI Narrative DESTINI SANDOVAL, is a 49 M who presents here for screening colonoscopy. She never had a colonoscopy in the past. She has a past medical history of mild depression, alcoholism and possible cannabis use disorder. [facility] Medical History (Updated 12/03/24 @ 13:[address] Barrera Friend, DO) Wears glasses Anxiety Eczema Smoker History of pain when walking Screening for colon cancer Gender dysphoria Depression Home Medications ?Medication ?Instructions ?Recorded ?Last Taken ?Type albuterol sulfate 90 mcg/actuation 2 puff inhalation Q4H PRN PRN 07/19/24 Unknown History aerosol inhaler wheezing bupropion HCl 150 mg 24 hr tablet, 150 mg PO DAILY 07/19/24 Unknown History extended release buspirone 5 mg tablet 5 mg PO TID 07/19/24 12/03/24 09:00 History estradiol valerate 20 mg/mL 10 mg IM SA 07/19/24 Unknown History intramuscular oil fluticasone propionate 50 2 spray intranasal DAILY 07/19/24 Unknown History mcg/actuation nasal spray,suspension meclizine 12.5 mg tablet 12.5 mg PO Q6H PRN PRN dizziness 07/19/24 Unknown History progesterone micronized 100 mg 100 mg PO DAILY 07/19/24 Unknown History capsule propranolol 20 mg tablet 20 mg PO BID 07/19/24 12/03/24 09:00 History finasteride 5 mg tablet 5 mg PO DAILY 11/30/24 Unknown History Allergy/AdvReac Type Severity Reaction Status Date / Time No Known Allergies Allergy Verified 11/30/24 12:19 Surgical History Hx of surgical procedure Hx of umbilical hernia repair Social History Smoking Status: Current some day smoker tobacco type: cigarettes ROS Constitutional Constitutional: Denies fatigue, fever(s), poor appetite, weight gain or weight loss Gastrointestinal Gastrointestinal: Denies belching, bloating, change in bowel habits, change in stool character, chewing difficulty, coffee ground emesis, constipation, cramping, diarrhea, dyspepsia, dysphagia, early satiety, excessive flatus, fecal incontinence, heartburn, hematemesis, hematochezia, hemorrhoids, loose stools, melena, nausea, odynophagia, rectal bleeding, tenesmus, vomiting or weight changes Vital Signs Vital Signs Vital Signs: 12/03/24 12:44 12/03/24 12:44 Temperature 96.9 F L Temperature Source Temporal Pulse Rate 64 Respiratory Rate 16 Respiratory Pattern Normal Blood Pressure 104/65 Blood Pressure Mean 78 Blood Pressure Source Monitor Blood Pressure Position Semi-Fowlers Blood Pressure Location Left Arm Pulse Ox 97 Oxygen Delivery Method Room Air Weight Weight: 205 lb 0.478 oz Body Mass Index (BMI) 26.3 Physical Exam Const alert, oriented x3, no apparent distress and healthy appearing General Appearance: cooperative GI normal to inspection, nondistended, normoactive bowel sounds, soft to palpation, non-tender and non-distended Percussion: normal to percussion Rectal Exam: deferred Assessment & Plan Assessment/Plan (1) Screening for colon cancer: PLAN: ` This patient was explained alternatives, risk and benefits include not withstanding bleeding, infection, sepsis, perforation, need for surgery and . They will have an ASA of 3.
--- NOTE | 2024-12-03 13:15 | COLBX_PTH ---
PATIENT: DESTINI SANDOVAL LOC: EN U#:[id number] AGE/SX: 49/M ROOM: RE12/03/[address]: Dr. Bruce Hardy DO : 1975 BED: DIS: 12/03/2024 SPEC #: [id number] RECD: 12/03/24 14:34 STATUS: GARETT REQ #: [id number] ZOE: 12/03/24 13:[address]: Bruce Hardy DEPT: SURGICAL PATHOLOGY RECD BY: Domenic Thomas ENTERED: 12/03/24 15:23 SP TYPE: COLON BX OTHR DR: Dr. Mt Kim MD Tissues: A - Sigmoid colon biopsy Procedures: Surgery Specimen Level IV HEADER OPERATION: Colonoscopy with polypectomy PRE-OP DIAGNOSIS: Screening for colon cancer TISSUE SUBMITTED: A- Sigmoid polyp MICROSCOPIC DIAGNOSIS A. Sigmoid colon, polyp, biopsy: - Hyperplastic polyp MICROSCOPIC DESCRIPTION Slides are reviewed. GROSS DESCRIPTION A. Received in fixative is one container labeled with the patient's name and designated Sigmoid polyp. The specimen consists of four irregular fragments of light gariaby soft tissue that in aggregate measure 0.1 to 0.2 cm. The specimen is totally submitted in one cassette. MI 12/03/2024 CPT:76013
--- NOTE | 2024-12-03 13:15 | COLBX_PTH ---
PATIENT: DESTINI SANDOVAL LOC: EN U#:[id number] AGE/SX: 49/M ROOM: RE12/03/[address]: Dr. Bruce Hardy DO : 1975 BED: DIS: 12/03/2024 SPEC #: [id number] RECD: 12/03/24 14:34 STATUS: GARETT REQ #: [id number] ZOE: 12/03/24 13:[address]: Bruce Hardy DEPT: SURGICAL PATHOLOGY RECD BY: Domenic Thomas ENTERED: 12/03/24 15:23 SP TYPE: COLON BX OTHR DR: Dr. Mt Kim MD Tissues: A - Sigmoid colon biopsy Procedures: Surgery Specimen Level IV HEADER OPERATION: Colonoscopy with polypectomy PRE-OP DIAGNOSIS: Screening for colon cancer TISSUE SUBMITTED: A- Sigmoid polyp MICROSCOPIC DIAGNOSIS A. Sigmoid colon, polyp, biopsy: - Hyperplastic polyp MICROSCOPIC DESCRIPTION Slides are reviewed. GROSS DESCRIPTION A. Received in fixative is one container labeled with the patient's name and designated Sigmoid polyp. The specimen consists of four irregular fragments of light gariaby soft tissue that in aggregate measure 0.1 to 0.2 cm. The specimen is totally submitted in one cassette. IA 12/03/2024 CPT:48624
--- NOTE | 2024-12-03 13:19 | PRE.ANES_ITS ---
ASA Classification* ASA Classification ASA Classification: 2 Assessment & Plan Anesthesia* Anesthesia Assessment Anesthesia Assessment: Discussed sedation and/or anesthesia options, risks, benefits, and alternatives with patient/parents/legal guardian/POA. Questions invited. The patient/parents/legal guardian/POA seems to understand and agrees to proceed with anesthesia plan. Reviewed the physical assessment, medical history, allergy history and patient home medications list prior to surgery/procedure/anesthetic and documented any changes. Performed airway and anesthesia risk assessments. Anesthesia Type Anesthesia Type: MAC History Source History Obtained from:: Patient and Chart Anesthesia Focused Assessment* Temperature: 96.9 F Pulse Rate: 64 Blood Pressure: 104/65 Respiratory Rate: 16 Pulse Ox: 97 Oxygen Delivery Method: Room Air Airway Assessment Mouth opens: >3 cm Mallampati Score: IV Teeth Condition: Caps/Crowns (Patient has several crowns. They are all tight.) Neck Range of motion (ROM): Full ROM Labs Anesthesia Preop lab: CBC WBC 7.2 K/mm3 (4.4-11.0) 07/20/24 05:22 07/20/24 RBC 4.48 M/mm3 (4.6-6.2) L 07/20/24 05:22 07/20/24 Hgb 13.0 g/dL (13.0-16.5) 07/20/24 05:22 07/20/24 Hct 36.7 % (40-54) L 07/20/24 05:22 07/20/24 Plt Count 206 K/mm3 (150-450) 07/20/24 05:22 07/20/24 CHEMISTRY Potassium 3.7 mmol/L (3.3-5.1) 07/20/24 05:22 07/20/24 Sodium 137 mmol/L (133-145) 07/20/24 05:22 07/20/24 Magnesium 2.1 mg/dL (1.5-2.2) 07/20/24 05:22 07/20/24 Phosphorus 2.8 mg/dL (2.7-4.5) 07/20/24 05:22 07/20/24 BUN 11 mg/dL (4-19) 07/20/24 05:22 07/20/24 Creatinine 0.84 mg/dL (0.70-1.20) 07/20/24 05:22 07/20/24 Glucose 87 mg/dL (70-99) 07/20/24 05:22 07/20/24 TSH 3.260 uIU/mL (0.300-4.200) 07/19/24 21:47 07/10 COAG Pre-Assessment Diagnosis/Proposed Procedure Planned Operative Procedure(s): COLONOSCOPY-OA Anesthesia History 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 When Was Last Pacemaker Check QUESTION #4 FULL TEXT: You/Your Family Experience fever (hyperthermia) with Anesthesia Last Oral Intake Last Oral intake: Last Oral Intake NPO since 09:00 12/03/24 12:44 Meds taken in AM with sips of Yes 12/03/24 12:44 water? Meds patient instructed to take am of surgery Any additional information?: Yes NPO since: 09:00 (Patient finished prep at 9 AM.) Meds taken in AM with sips of water?: Yes PONV PONV - charge accounts audit clerk: PONV - charge accounts audit clerk Female No 11/30/24 12:33 HX of Motion Sickness No 11/30/24 12:33 HX of N/V After Surgery No 11/30/24 12:33 Non-Smoker No 11/30/24 12:33 Duration of Surgery greater No 11/30/24 12:33 than 60 minutes Number of Risk Factors PONV Score Height & Weight Height & Weight: Anesthesia: Height & Weight Height 6 ft 2 in 12/03/24 12:44 Weight: 93 kg 12/03/24 12:44 Body Mass Index (BMI) 26.3 12/03/24 12:44 Respiratory Assessment Respiratory Assessment - charge accounts audit clerk: Respiratory Tract Infection Hx - charge accounts audit clerk Hx Respiratory Tract Infection No 11/30/24 12:33 STOP Sleep Apnea STOP Sleep Apnea - charge accounts audit clerk: STOP Sleep Apnea - charge accounts audit clerk Hx Hypertension No 11/30/24 12:33 Hx Sleep Apnea No 11/30/24 12:33 CPAP BIPAP Do you snore loudly (louder No 11/30/24 12:33 than talking or can be heard Do you often feel tired/ No 11/30/24 12:33 fatigued/ sleepy during daytime? Has anyone observed you stop No 11/30/24 12:33 breathing during sleep? STOP Results Negative 11/30/24 12:33 QUESTION #5 FULL TEXT : Do you snore loudly (louder than talking or can be heard through closed doors)? 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 Specify any problems Hx of Preganancy in last 3 N/A 11/30/24 12:33 Months Nurse Filling Out Transfusion VCHRISTIN 11/30/24 12:33 & Questions: Date: 11/30/24 11/30/24 12:33 Time: 12:34 11/30/24 12:33 Patient unable to answer at this time (ie. confused, unrespo /Reproduction History /Reproductive History - charge accounts audit clerk: /Reproductive Hx- charge accounts audit clerk Hx Now No 11/30/24 12:33 Gestational Age (in weeks): EDC: Hx Hx Para Hx Section SAB No 11/30/24 12:33 Active Medications Active Medications: Current Medications Generic Name Dose Route Start Last Admin Trade Name Freq PRN Reason Stop Dose Admin Lactated Ringer's 1,000 mls @ 15 mls/hr 12/03/24 12:30 12/03/24 12:50 IV 15 mls/hr .Q48H HENRY Administration PFSH Medical History Wears glasses Anxiety Eczema Smoker History of pain when walking Screening for colon cancer Gender dysphoria Depression Home Medications ?Medication ?Instructions ?Recorded ?Last Taken ?Type albuterol sulfate 90 mcg/actuation 2 puff inhalation Q 4H PRN PRN 07/19/24 Unknown History aerosol inhaler wheezing bupropion HCl 150 mg 24 hr tablet, 150 mg PO DAILY 03/05 Unknown History extended release buspirone 5 mg tablet 5 mg PO TID 07/19/24 5 09:00 History estradiol valerate 20 mg/mL 10 mg IM SA 07/19/24 Unkno wn History intramuscular oil fluticasone propionate 50 2 spray intranasal DAILY 03/05 Unknown History mcg/actuation nasal spray,suspension meclizine 12.5 mg tablet 12.5 mg PO Q6H PRN PRN dizzi ness 07/19/24 Unknown History progesterone micronized 100 mg 100 mg PO DAILY 5 Unknown History capsule propranolol 20 mg tablet 20 mg PO BID 07/19/24 09:00 History finasteride 5 mg tablet 5 mg PO DAILY 11/30/24 Unkno wn History Allergy/AdvReac Type Severity Reaction Status Date / Time No Known Allergies Allergy Verified 11/30/24 12:19 Surgical History Hx of surgical procedure Hx of umbilical hernia repair Social History Smoking Status: Current every day smoker (Patient smoked today.) tobacco type: cigarettes Review of Systems (Anesthesia) ROS Narrative System reviewed and no additional complaints, except as documented.
--- NOTE | 2024-12-03 13:19 | PRE.ANES_ITS ---
ASA Classification* ASA Classification ASA Classification: 2 Assessment & Plan Anesthesia* Anesthesia Assessment Anesthesia Assessment: Discussed sedation and/or anesthesia options, risks, benefits, and alternatives with patient/parents/legal guardian/POA. Questions invited. The patient/parents/legal guardian/POA seems to understand and agrees to proceed with anesthesia plan. Reviewed the physical assessment, medical history, allergy history and patient home medications list prior to surgery/procedure/anesthetic and documented any changes. Performed airway and anesthesia risk assessments. Anesthesia Type Anesthesia Type: MAC History Source History Obtained from:: Patient and Chart Anesthesia Focused Assessment* Temperature: 96.9 F Pulse Rate: 64 Blood Pressure: 104/65 Respiratory Rate: 16 Pulse Ox: 97 Oxygen Delivery Method: Room Air Airway Assessment Mouth opens: >3 cm Mallampati Score: IV Teeth Condition: Caps/Crowns (Patient has several crowns. They are all tight.) Neck Range of motion (ROM): Full ROM Labs Anesthesia Preop lab: CBC WBC 7.2 K/mm3 (4.4-11.0) 07/20/24 05:22 07/20/24 RBC 4.48 M/mm3 (4.6-6.2) L 07/20/24 05:22 07/20/24 Hgb 13.0 g/dL (13.0-16.5) 07/20/24 05:22 07/20/24 Hct 36.7 % (40-54) L 07/20/24 05:22 07/20/24 Plt Count 206 K/mm3 (150-450) 07/20/24 05:22 07/20/24 CHEMISTRY Potassium 3.7 mmol/L (3.3-5.1) 07/20/24 05:22 07/20/24 Sodium 137 mmol/L (133-145) 07/20/24 05:22 07/20/24 Magnesium 2.1 mg/dL (1.5-2.2) 07/20/24 05:22 07/20/24 Phosphorus 2.8 mg/dL (2.7-4.5) 07/20/24 05:22 07/20/24 BUN 11 mg/dL (4-19) 07/20/24 05:22 07/20/24 Creatinine 0.84 mg/dL (0.70-1.20) 07/20/24 05:22 07/20/24 Glucose 87 mg/dL (70-99) 07/20/24 05:22 07/20/24 TSH 3.260 uIU/mL (0.300-4.200) 07/19/24 21:47 07/10 COAG Pre-Assessment Diagnosis/Proposed Procedure Planned Operative Procedure(s): COLONOSCOPY-OA Anesthesia History Anesthesia History - medical orderly: Anesthesia History - medical orderly Hx Hospitalization No 11/30/24 12:33 Any Problems With Anesthesia No 11/30/24 12:33 Cholinesterase deficiency No 11/30/24 12:33 You/Your Family Experience No 11/30/24 12:33 fever (hyperthermia) with Relationship Recent Exposure to Contagious No 12/03/24 12:44 Disease Does patient have nerve No 11/30/24 12:33 stimulator Patient instructed to have device shut off --Does patient have Pacemaker No 12/03/24 12:44 or ICD? When Was Last Pacemaker Check QUESTION #4 FULL TEXT: You/Your Family Experience fever (hyperthermia) with Anesthesia Last Oral Intake Last Oral intake: Last Oral Intake NPO since 09:00 12/03/24 12:44 Meds taken in AM with sips of Yes 12/03/24 12:44 water? Meds patient instructed to take am of surgery Any additional information?: Yes NPO since: 09:00 (Patient finished prep at 9 AM.) Meds taken in AM with sips of water?: Yes PONV PONV - medical orderly: PONV - medical orderly Female No 11/30/24 12:33 HX of Motion Sickness No 11/30/24 12:33 HX of N/V After Surgery No 11/30/24 12:33 Non-Smoker No 11/30/24 12:33 Duration of Surgery greater No 11/30/24 12:33 than 60 minutes Number of Risk Factors PONV Score Height & Weight Height & Weight: Anesthesia: Height & Weight Height 6 ft 2 in 12/03/24 12:44 Weight: 93 kg 12/03/24 12:44 Body Mass Index (BMI) 26.3 12/03/24 12:44 Respiratory Assessment Respiratory Assessment - medical orderly: Respiratory Tract Infection Hx - medical orderly Hx Respiratory Tract Infection No 11/30/24 12:33 STOP Sleep Apnea STOP Sleep Apnea - medical orderly: STOP Sleep Apnea - medical orderly Hx Hypertension No 11/30/24 12:33 Hx Sleep Apnea No 11/30/24 12:33 CPAP BIPAP Do you snore loudly (louder No 11/30/24 12:33 than talking or can be heard Do you often feel tired/ No 11/30/24 12:33 fatigued/ sleepy during daytime? Has anyone observed you stop No 11/30/24 12:33 breathing during sleep? STOP Results Negative 11/30/24 12:33 QUESTION #5 FULL TEXT : Do you snore loudly (louder than talking or can be heard through closed doors)? 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 Specify any problems Hx of Preganancy in last 3 N/A 11/30/24 12:33 Months Nurse Filling Out Transfusion VCHRISTIN 11/30/24 12:33 & Questions: Date: 11/30/24 11/30/24 12:33 Time: 12:34 11/30/24 12:33 Patient unable to answer at this time (ie. confused, unrespo /Reproduction History /Reproductive History - medical orderly: /Reproductive Hx- medical orderly Hx Now No 11/30/24 12:33 Gestational Age (in weeks): EDC: Hx Hx Para Hx Section SAB No 11/30/24 12:33 Active Medications Active Medications: Current Medications Generic Name Dose Route Start Last Admin Trade Name Freq PRN Reason Stop Dose Admin Lactated Ringer's 1,000 mls @ 15 mls/hr 12/03/24 12:30 12/03/24 12:50 IV 15 mls/hr .Q48H HENRY Administration PFSH Medical History Wears glasses Anxiety Eczema Smoker History of pain when walking Screening for colon cancer Gender dysphoria Depression Home Medications ?Medication ?Instructions ?Recorded ?Last Taken ?Type albuterol sulfate 90 mcg/actuation 2 puff inhalation Q 4H PRN PRN 07/19/24 Unknown History aerosol inhaler wheezing bupropion HCl 150 mg 24 hr tablet, 150 mg PO DAILY 03/05 Unknown History extended release buspirone 5 mg tablet 5 mg PO TID 07/19/24 5 09:00 History estradiol valerate 20 mg/mL 10 mg IM SA 07/19/24 Unkno wn History intramuscular oil fluticasone propionate 50 2 spray intranasal DAILY 03/05 Unknown History mcg/actuation nasal spray,suspension meclizine 12.5 mg tablet 12.5 mg PO Q6H PRN PRN dizzi ness 07/19/24 Unknown History progesterone micronized 100 mg 100 mg PO DAILY 5 Unknown History capsule propranolol 20 mg tablet 20 mg PO BID 07/19/24 09:00 History finasteride 5 mg tablet 5 mg PO DAILY 11/30/24 Unkno wn History Allergy/AdvReac Type Severity Reaction Status Date / Time No Known Allergies Allergy Verified 11/30/24 12:19 Surgical History Hx of surgical procedure Hx of umbilical hernia repair Social History Smoking Status: Current every day smoker (Patient smoked today.) tobacco type: cigarettes Review of Systems (Anesthesia) ROS Narrative System reviewed and no additional complaints, except as documented.
--- NOTE | 2024-12-03 13:58 | OP.PROVAT_ITS ---
12/03/2024 Mt Kim Re : Colonoscopy procedure for Joyce Charlton Dear Judy This procedure was performed on Tuesday, December 03, 2024. My impressions and recommendations are as follows: Impressions : - Hemorrhoids found on perianal exam. - Diverticulosis in the recto-sigmoid colon and in the sigmoid colon. - One 7 mm polyp in the sigmoid colon, removed with a cold biopsy forceps. Resected and retrieved. - The examination was otherwise normal on direct and retroflexion views. Recommendations : - Discharge patient to home. - Repeat colonoscopy in 5 years for surveillance. - Continue present medications. My findings are described in the full procedure note, which is enclosed. If I can be of further assistance, please feel free to contact me at . Sincerely, Bruce Hardy, 12/03/2024 1:57:36 PM This report has been signed electronically.
--- NOTE | 2024-12-03 13:58 | OP.COLON_ITS ---
Patient Name: Joyce Charlton Procedure Date: 12/03/2024 1:22 PM Date of : 1975 Age: 49 Procedure: Colonoscopy Indications: Screening for colorectal malignant neoplasm Providers: Bruce Hardy DO Referring MD: Mt Kim Medicines: Monitored Anesthesia Care Patient Profile: This is a 49 year old male. Refer to note in patient chart for documentation of history and physical. Last Colonoscopy: none. The patient's first colonoscopy is today. Complications: No immediate complications. Procedure: Pre-Anesthesia Assessment: - Prior to the procedure, a History and Physical was performed, and patient medications and allergies were reviewed. The patient is competent. The risks and benefits of the procedure and the sedation options and risks were discussed with the patient. All questions were answered and informed consent was obtained. Patient identification and proposed procedure were verified by the physician in the pre-procedure area. Mental Status Examination: alert and oriented. Airway Examination: normal oropharyngeal airway and neck mobility. Respiratory Examination: clear to auscultation. CV Examination: normal. Prophylactic Antibiotics: The patient does not require prophylactic antibiotics. Prior Anticoagulants: The patient has taken no anticoagulant or antiplatelet agents except for NSAID medication. ASA Grade Assessment: II - A patient with mild systemic disease. After reviewing the risks and benefits, the patient was deemed in satisfactory condition to undergo the procedure. The anesthesia plan was to use monitored anesthesia care (MAC). Immediately prior to administration of medications, the patient was re-assessed for adequacy to receive sedatives. The heart rate, respiratory rate, oxygen saturations, blood pressure, adequacy of pulmonary ventilation, and response to care were monitored throughout the procedure. The physical status of the patient was re-assessed after the procedure. After I obtained informed consent, the scope was passed under direct vision. Throughout the procedure, the patient's blood pressure, pulse, and oxygen saturations were monitored continuously. The Colonoscope was introduced through the anus and advanced to the cecum, identified by appendiceal orifice and ileocecal valve. The colonoscopy was performed without difficulty. The patient tolerated the procedure well. The quality of the bowel preparation was adequate. The ileocecal valve, appendiceal orifice, and rectum were photographed. Scope In: 1:39:08 PM Scope Withdrawal Time 0 hours 9 minutes 4 seconds Scope Out: 1:51:34 PM Total Procedure Duration Time 0 hours 12 minutes 26 seconds Findings: Hemorrhoids were found on perianal exam. A few small-mouthed diverticula were found in the recto-sigmoid colon and sigmoid colon. A 7 mm polyp was found in the sigmoid colon. The polyp was sessile. The polyp was removed with a cold biopsy forceps. Resection and retrieval were complete. The exam was otherwise without abnormality on direct and retroflexion views. Impression: - Hemorrhoids found on perianal exam. - Diverticulosis in the recto-sigmoid colon and in the sigmoid colon. - One 7 mm polyp in the sigmoid colon, removed with a cold biopsy forceps. Resected and retrieved. - The examination was otherwise normal on direct and retroflexion views. Recommendation: - Discharge patient to home. - Repeat colonoscopy in 5 years for surveillance. - Continue present medications. Procedure Code(s): --- Professional --- 11988, Colonoscopy, flexible; with biopsy, single or multiple CPT copyright 2021 [employer]. All rights reserved. The codes documented in this report are preliminary and upon toe laster review may be revised to meet current compliance requirements. Bruce Hardy DO 12/03/2024 1:57:36 PM This report has been signed electronically. Number of Addenda: 0 Note Initiated On: 12/03/2024 1:22 PM
--- NOTE | 2024-12-03 13:58 | OP.COLON_ITS ---
Patient Name: Joyce Charlton Procedure Date: 12/03/2024 1:22 PM Date of : 1975 Age: 49 Procedure: Colonoscopy Indications: Screening for colorectal malignant neoplasm Providers: Bruce Hardy DO Referring MD: [facility] Medicines: Monitored Anesthesia Care Patient Profile: This is a 49 year old male. Refer to note in patient chart for documentation of history and physical. Last Colonoscopy: none. The patient's first colonoscopy is today. Complications: No immediate complications. Procedure: Pre-Anesthesia Assessment: - Prior to the procedure, a History and Physical was performed, and patient medications and allergies were reviewed. The patient is competent. The risks and benefits of the procedure and the sedation options and risks were discussed with the patient. All questions were answered and informed consent was obtained. Patient identification and proposed procedure were verified by the physician in the pre-procedure area. Mental Status Examination: alert and oriented. Airway Examination: normal oropharyngeal airway and neck mobility. Respiratory Examination: clear to auscultation. CV Examination: normal. Prophylactic Antibiotics: The patient does not require prophylactic antibiotics. Prior Anticoagulants: The patient has taken no anticoagulant or antiplatelet agents except for NSAID medication. ASA Grade Assessment: II - A patient with mild systemic disease. After reviewing the risks and benefits, the patient was deemed in satisfactory condition to undergo the procedure. The anesthesia plan was to use monitored anesthesia care (MAC). Immediately prior to administration of medications, the patient was re-assessed for adequacy to receive sedatives. The heart rate, respiratory rate, oxygen saturations, blood pressure, adequacy of pulmonary ventilation, and response to care were monitored throughout the procedure. The physical status of the patient was re-assessed after the procedure. After I obtained informed consent, the scope was passed under direct vision. Throughout the procedure, the patient's blood pressure, pulse, and oxygen saturations were monitored continuously. The Colonoscope was introduced through the anus and advanced to the cecum, identified by appendiceal orifice and ileocecal valve. The colonoscopy was performed without difficulty. The patient tolerated the procedure well. The quality of the bowel preparation was adequate. The ileocecal valve, appendiceal orifice, and rectum were photographed. Scope In: 1:39:08 PM Scope Withdrawal Time 0 hours 9 minutes 4 seconds Scope Out: 1:51:34 PM Total Procedure Duration Time 0 hours 12 minutes 26 seconds Findings: Hemorrhoids were found on perianal exam. A few small-mouthed diverticula were found in the recto-sigmoid colon and sigmoid colon. A 7 mm polyp was found in the sigmoid colon. The polyp was sessile. The polyp was removed with a cold biopsy forceps. Resection and retrieval were complete. The exam was otherwise without abnormality on direct and retroflexion views. Impression: - Hemorrhoids found on perianal exam. - Diverticulosis in the recto-sigmoid colon and in the sigmoid colon. - One 7 mm polyp in the sigmoid colon, removed with a cold biopsy forceps. Resected and retrieved. - The examination was otherwise normal on direct and retroflexion views. Recommendation: - Discharge patient to home. - Repeat colonoscopy in 5 years for surveillance. - Continue present medications. Procedure Code(s): --- Professional --- 89135, Colonoscopy, flexible; with biopsy, single or multiple CPT copyright 2021 [employer]. All rights reserved. The codes documented in this report are preliminary and upon highway maintainer review may be revised to meet current compliance requirements. Bruce Hardy DO 12/03/2024 1:57:36 PM This report has been signed electronically. Number of Addenda: 0 Note Initiated On: 12/03/2024 1:22 PM
--- NOTE | 2024-12-03 14:01 | PCM.POST.ANE ---
Anesthesia: Postop Eval I Current Vital Signs Temperature: 97.1 F Pulse Rate: 67 Blood Pressure: 91/57 Respiratory Rate: 16 Pulse Ox: 98 Oxygen Delivery Method: Room Air Assessment Airway patent: Yes Spontaneous unlabored respirations: Yes Mental status: Awake and Calm nausea: No Vomiting: No Anesthesia Complication: No Fluid Hydration Crystalloid volume administer (ml): 400 Total IV fluid infused: 400 Progress Note Anesthesia document: Postop Eval 1 completed: Yes
== END 2024-12-03 15:03 | disposition home or self-care (01) ==
LOC: EN 12:26 → AC 12:28
PROVIDERS: PCP Family Medicine; Referring Provider Family Medicine; Visit Provider Internal Medicine Gastroenterology
PROC: 0DJD8ZZ Inspection of Lower Intestinal Tract, Via Natural or Artificial Opening Endoscopic (ICD-10-PCS; CPT 45378; principal; 2024-12-03 13:10)
DX: Z12.11 Encounter for screening for malignant neoplasm of colon (principal); K57.30 Diverticulosis of large intestine without perforation or abscess without bleeding; K63.5 Polyp of colon; K64.9 Unspecified hemorrhoids; F32.A Depression, unspecified; F41.9 Anxiety disorder, unspecified; F17.210 Nicotine dependence, cigarettes, uncomplicated; Z79.51 Long term (current) use of inhaled steroids; Z79.899 Other long term (current) drug therapy
CPT/HCPCS: 45380; 88305; J2405